=== PATIENT | male | born 2005 | race African-American/Black ===

== ENCOUNTER 2023-08-22 22:40 | Emergency (ER) | payer SELFPAY ==
[2023-08-22] MEDS ORDERED: cefTRIAXone (ROCEPHIN) 500 MG VIAL ONE (23:08)
[2023-08-24 05:58] LABS: Chlam.trachomatis by PCR,Urine Not Detected (NotDetected); GC N.gonorrhoeae PCR,UrineVOID DETECTED (NotDetected)
== END 2023-08-22 23:20 | disposition home or self-care (01) ==
LOC: CSHERS 22:40
DX: N34.2 Other urethritis (principal); F17.290 Nicotine dependence, other tobacco product, uncomplicated
CPT/HCPCS: 87491; 87591; 96372; 99283; J0696